=== PATIENT | male | born 1965 | race Caucasian/White ===

== ENCOUNTER 2017-08-27 10:45 | Day surgery (SDC) | payer OTHER ==
[~2017-08-27 10:45] MED LIST: CIPRO 400 MG/200 ML D5W IVPB; DEXAMETHASONE 4 MG/ML 1 ML INJ
[2017-08-27] MEDS ORDERED: FENTAnyl 50 MCG/ML VIAL (13:00)
[2017-08-27] MEDS: CIPROFLOXACIN 400MG/D5W 200 ML IVPB (13:00)
[2017-08-27] MEDS ORDERED: MIDAZOLAM 1 MG/ML 2 ML INJ (13:00)
[2017-08-27] MEDS ORDERED: ONDANSETRON 4 MG INJ (13:01)
[2017-08-27] MEDS ORDERED: LIDOCAINE 2% (SDV) 5 ML INJ (13:02)
[2017-08-27] MEDS ORDERED: PROPOFOL 20 ML (13:02)
[2017-08-27] MEDS: BACITRACIN 0.9 GM OINT (14:17)
[2017-08-27] MEDS ORDERED: MEPERIDINE 25 MG INJ IV (14:30)
[2017-08-27] MEDS ORDERED: DIPHENHYDRAMINE 50 MG INJ IV (14:30)
[2017-08-27] MEDS ORDERED: HYDROmorphONE 1 MG/5 ML IV SYRINGE IV ×2 (14:30)
[2017-08-27] MEDS ORDERED: FENTAnyl 50 MCG/ML VIAL IV ×2 (14:30)
[2017-08-27] MEDS ORDERED: HYDROCODONE/APAP (5/325) TAB PO (14:30)
[2017-08-27] MEDS: HYDROmorphONE 1 MG/5 ML IV SYRINGE IV (14:55)
[2017-08-27] MEDS: ONDANSETRON 4 MG INJ IV (14:55)
== END 2017-08-27 16:40 | disposition home or self-care (01) ==
LOC: SDS 10:45
DX: L72.0 Epidermal cyst (principal); E11.9 Type 2 diabetes mellitus without complications
CPT/HCPCS: 11426; 82962; 88304